=== PATIENT | male | born 1965 | race Caucasian/White ===

== ENCOUNTER 2016-10-24 20:38 | Emergency (ER) | payer BC ==
[2016-10-25] MEDS ORDERED: NS 0.9% 1000 ML* 1,000 ML IV SCH (00:15)
[2016-10-25 00:30] LABS: Albumin 4.4 g/dL (3.2-5.2); BUN/Creatinine Ratio 13.7 (8-20); Calcium 9.2 mg/dL (8.6-10.3); EGFR African American 107.9 (>60); EGFR Non-African American 83.9 (>60); Globulin 2.3 g/dL (2-4); Potassium 3.9 mmol/L (3.5-5.0); Total Bilirubin 0.6 mg/dL (0.2-1.0); Total Protein 6.7 g/dL (6.4-8.9)
[2016-10-25 00:40] LABS: Hematocrit 39 % (42-52); Hemoglobin 13.6 g/dl (14.0-18.0); Mean Corpuscular HGB Conc 35 g/dl (31-36); Mean Corpuscular Hemoglobin 30 pg (27-31); Mean Corpuscular Volume 87 fL (80-94); Mean Platelet Volume 8 um3 (7.4-10.4); Red Blood Count 4.53 10^6/ul (4.0-5.4); Red Cell Distribution Width 14 % (10.5-15); White Blood Count 7.1 10^3/ul (3.5-10.8)
[2016-10-25 01:02] LABS: Urine Bilirubin Negative (Negative); Urine Glucose Negative (Negative); Urine Nitrite Negative (Negative)
[2016-10-25] MEDS ORDERED: Iohexol 300* (CONTRAST) 10 ML SDV IV ONE (03:30)
[2016-10-25] MEDS ORDERED: Ibuprofen TAB* 600 MG PO ONE (04:48)
[2016-10-25 05:29] VITALS: BP 107/83
--- NOTE | 2016-10-25 09:27 | RAD ---
Indication: Right lower quadrant pain. Contrast: Administered 97.0 ml of OMNIPAQUE 300 mgi/ml CT of the abdomen and pelvis was performed after oral and IV contrast administration. No prior study is available for comparison. Lung bases demonstrate no pleural fluid, nodules or masses. Heart is of normal size without evidence of pericardial effusion. Liver is normal in size. Hypervascular lesion is noted in the dome of the left lobe of liver measuring 14 mm. This likely represents a flash filling hemangioma. No other focal lesions or intrahepatic duct dilatation is noted. The gallbladder demonstrates no calcified gallstones. No pericholecystic fluid or wall thickening is noted. The common duct is not dilated. The pancreas indicates no mass or pancreatic duct dilatation. The spleen is normal in size. No adrenal masses are noted. The kidneys demonstrate symmetric nephrograms without focal lesions. There is a left renal cyst measuring up to 2.7 cm. No retroperitoneal lymphadenopathy is noted. Atherosclerotic aorta is noted. CT of the pelvis demonstrates the colon to be filled with contrast. Appendix is visualized and is normal and contrast-filled. Urinary bladder is distended. No hernias are noted. Posterior to the duodenum just anterior to the inferior vena cava there is a low density structure measuring approximately 2.5 cm. The possibility of mesenteric cyst should BE considered. A lymph node is not totally excluded. Follow-up exam is suggested. IMPRESSION: Normal appendix. Likely flash filling hemangioma in the dome of the left lobe of liver. No bowel obstruction is noted. Low density structure located between the horizontal portion of the duodenum in the inferior vena cava measures 2.5 cm. Mesenteric cyst should BE considered. Follow-up exam is suggested.
--- NOTE | 2016-10-27 00:49 | ED ---
Sj Dominguez Aidan, scribed for Arnulfo Sousa on 10/25/16 at 0039 . Abdominal Pain/Male - HPI Summary HPI Summary: 51 y/o male presents to the ED with a complaint of acute, moderate (6/10) episodes of periumbilical abdominal pain that began at 1500 today. He denies any nausea, vomiting, diarrhea, constipation, CP, or SOB. Hx of groin pain and prostate problems. He still has his gallbladder and appendix. - History of Current Complaint Chief Complaint: EDAbdPain Stated Complaint: ABD PAIN Time Seen by Provider: 10/24/16 23:23 Hx Obtained From: Patient Onset/Duration: Sudden Onset, Lasting Hours, Still Present Timing: Intermittent, Lasting Days Severity Initially: Moderate Severity Currently: Moderate Pain Intensity: 6 Pain Scale Used: 0-10 Numeric Location: Umbilical Radiates: No Radiates to: Other - pain does not radiate, however, the patient has a Hx of unassociated groin pain Character: Sharp Aggravating Factor(s): Other: - unknown Alleviating Factor(s): Other: - unknown Associated Signs And Symptoms: Positive: Negative - Risk Factors Cardiac Risk Factors: Smoking - Allergies/Home Medications Allergies/Adverse Reactions: Allergies Allergy/AdvReac Type Severity Reaction Status Date / Time No Known Allergies Allergy Verified 06/25/14 19:18 PMH/Surg Hx/FS Hx/Imm Hx Infectious Disease History: No Infectious Disease History: Denies: Traveled Outside the [place] in Last 30 Days - Family History Known Family History: Positive: Hypertension - Social History Occupation: Employed Full-time Lives: Alone Alcohol Use: None Substance Use Type: Reports: Marijuana Smoking Status (MU): Light Every Day Tobacco Smoker Review of Systems Constitutional: Negative Eyes: Negative ENT: Negative Cardiovascular: Negative Respiratory: Negative Positive: Abdominal Pain. Negative: Vomiting, Diarrhea, Nausea Genitourinary: Negative Musculoskeletal: Negative Skin: Negative Neurological: Negative Psychological: Normal All Other Systems Reviewed And Are Negative: Yes Physical Exam Triage Information Reviewed: Yes Vital Signs On Initial Exam: Initial Vitals Pulse Resp BP Pulse Ox 61 18 137/86 99 10/24/16 20:40 10/24/16 20:40 10/24/16 20:40 10/24/16 20:40 Vital Signs Reviewed: Yes Appearance: Positive: Well-Appearing, No Pain Distress Skin: Positive: Warm, Skin Color Reflects Adequate Perfusion, Dry Head/Face: Positive: Normal Head/Face Inspection Eyes: Positive: EOMI, DELMI ENT: Positive: Normal ENT inspection Neck: Positive: Supple, Nontender Respiratory/Lung Sounds: Positive: Clear to Auscultation, Breath Sounds Present Cardiovascular: Positive: Normal, RRR, Pulses are Symmetrical in both Upper and Lower Extremities Abdomen Description: Positive: Soft, Other: - tenderness around umbilical area Bowel Sounds: Positive: Present Musculoskeletal: Positive: Normal, Strength/ROM Intact Neurological: Positive: Normal, Sensory/Motor Intact, Alert, Oriented to Person Place, Time Psychiatric: Positive: Normal, Affect/Mood Appropriate AVPU Assessment: Alert - Neli Coma Scale Coma Scale Total: 15 Diagnostics - Vital Signs Vital Signs Temp Pulse Resp BP Pulse Ox 10/24/16 23:39 98 F 55 16 134/80 97 10/24/16 22:00 60 18 134/80 99 10/24/16 20:40 61 18 137/86 99 - Laboratory Lab Results: Lab Results 10/24/16 10/24/16 Range/Units 23:35 23:35 INR (Anticoag Therapy) 0.99 (0.89-1.11) APTT 30.6 (26.0-36.3) seconds Sodium 137 (133-145) mmol/L Potassium 3.9 (3.5-5.0) mmol/L Chloride 103 (101-111) mmol/L Carbon Dioxide 25 (22-32) mmol/L Anion Gap 9 (2-11) mmol/L BUN 13 (6-24) mg/dL Creatinine 0.95 (0.67-1.17) mg/dL Est GFR ( Amer) 107.9 (>60) Est GFR (Non-Af Amer) 83.9 (>60) BUN/Creatinine Ratio 13.7 (8-20) Glucose 91 (70-100) mg/dL Calcium 9.2 (8.6-10.3) mg/dL Total Bilirubin 0.60 (0.2-1.0) mg/dL AST 19 (13-39) U/L ALT 14 (7-52) U/L Alkaline Phosphatase 57 (34-104) U/L Troponin I 0.00 (<0.04) ng/mL Total Protein 6.7 (6.4-8.9) g/dL Albumin 4.4 (3.2-5.2) g/dL Globulin 2.3 (2-4) g/dL Albumin/Globulin Ratio 1.9 (1-3) Lipase 15 (11.0-82.0) U/L Result Diagrams: 10/24/16 23:35 10/24/16 23:35 Lab Statement: Any lab studies that have been ordered have been reviewed, and results considered in the medical decision making process. - CT ABDOMEN/PELVIS CT CT Interpretation: No Acute Changes - NO BOWEL OBSTRUCTION, COLITIS, DIVERTICULITIS, FREE FLUID OR FREE AIR, NORMAL APPENDIX. UNREMARKABLE PANCREAS, KIDNEY AND GALLBLADDER. NO UMBILICAL HERNIA. SMALL LEFT INGUINAL REGION HERNIA CONTAINING FAT., Positive (See Comments) - SMALL LEFT RENAL CYST, ENLARGED CENTRAL PROSTATE GLAND PROTRUDING TOWARD BLADDER BASE CT Interpretation Completed By: Radiologist - HELIC[employer]CH[employer]IC Abdominal Pain Fem Course/Dx - Course Course Of Treatment: This is a 51 y/o male presenting with umbillical tenderness. Labs and imaging reviewed. The patient will be discharged with a diagnosis of abdominal pain. Recommended follow up with PCP within 3 days. - Diagnoses Provider Diagnoses: Abdominal pain Discharge - Discharge Plan Condition: Stable Disposition: HOME Discharge Disposition Comment: Please follow up with your primary care provider within 3 days. Prescriptions: Ibuprofen TAB* [Motrin TAB* 600 MG] 600 mg PO Q8H PRN #20 tab PRN Reason: Pain Patient Education Materials: Acute Abdominal Pain (ED) Referrals: Non Staff,Doctor [Primary Care Provider] - The documentation as recorded by the Sj vicente Aidan accurately reflects the service I personally performed and the decisions made by , Arnulfo Sousa.
== END 2016-10-25 05:28 | disposition home or self-care (01) ==
LOC: ED 20:38
DX: R10.84 Generalized abdominal pain (principal); F17.210 Nicotine dependence, cigarettes, uncomplicated
CPT/HCPCS: 36415; 74177; 80053; 81003; 83690; 84484; 85025; 85610; 85730; 96360; 99283; Q9967

== ENCOUNTER 2016-12-04 14:41 | Emergency (ER) | payer BC ==
[2016-12-04 16:03] VITALS: BP 147/82
--- NOTE | 2016-12-04 17:04 | UC ---
Debbie Dominguez Edward, scribed for Giacomo Reyes MD on 12/04/16 at 1537 . Skin Complaint HPI - HPI Summary HPI Summary: 51 y/o male presents to [facility] with a red rash on the R hip starting 8-9 days ago. The rash was sore and painful. Patient saw a dark spot in the rash a couple of days ago. Denies feeling sick. NKDA. No PMHx HTN and DM. - History of Current Complaint Time Seen by Provider: 12/04/16 15:29 Stated Complaint: RED AREA ON SIDE Hx Obtained From: Patient Onset/Duration: Sudden Onset, Lasting Days Location: Discrete - R Hip Character: Redness, Painful Associated Signs & Symptoms: Positive: Negative - Denied feeling sick, Rash - Allergy/Home Medications Allergies/Adverse Reactions: Allergies Allergy/AdvReac Type Severity Reaction Status Date / Time No Known Allergies Allergy Verified 12/04/16 15:56 Review of Systems Constitutional: Negative Skin: Rash Eyes: Negative ENT: Negative Respiratory: Negative Cardiovascular: Negative Gastrointestinal: Negative Genitourinary: Negative Motor: Negative Neurovascular: Negative Musculoskeletal: Negative Neurological: Negative Psychological: Negative All Other Systems Reviewed And Are Negative: Yes PMH/Surg Hx/FS Hx/Imm Hx - Additional Past Medical History Additional PMH: No HTN, no DM, no psychiatric disorders. Previously Healthy: Yes - Surgical History Surgical History: None - Family History Known Family History: Positive: Hypertension - Social History Alcohol Use: None Substance Use Type: Marijuana Smoking Status (MU): Light Every Day Tobacco Smoker Physical Exam Triage Information Reviewed: Yes Appearance: Well-Appearing, No Pain Distress Vital Signs: Initial Vital Signs Temp 99.7 F 12/04/16 15:53 Pulse 55 12/04/16 15:53 Resp 16 12/04/16 15:53 BP 147/82 12/04/16 15:53 Pulse Ox 97 12/04/16 15:53 Vital Signs Reviewed: Yes Eye Exam: Normal ENT: Positive: Normal ENT inspection Neck: Positive: Supple, Nontender Respiratory: Positive: Chest non-tender, Lungs clear, Normal breath sounds Cardiovascular: Positive: RRR Abdomen Description: Positive: Nontender, Soft Bowel Sounds: Positive: Present Musculoskeletal Exam: Normal Musculoskeletal: Positive: Strength Intact, ROM Intact Neurological Exam: Normal Neurological: Positive: Alert Psychological Exam: Normal Psychological: Positive: Age Appropriate Behavior Skin: Positive: rashes - 12 cm erythematous, blanching area @ R upper leg/lower ABD inguinal area Course/Dx - Course Course Of Treatment: MEDICATIONS REVIEWED UPON VISIT. RX DOXY 100MG X 21 DAYS. - Diagnoses Provider Diagnoses: LYME DISEASE Discharge - Discharge Plan Condition: Stable Disposition: HOME Prescriptions: DOXYcycline CAP(*) [DOXYcycline 100MG CAP(*)] 100 mg PO BID #42 cap Patient Education Materials: Lyme Disease (ED) Referrals: Non Staff,Doctor [Medical Doctor] - Additional Instructions: FOLLOW UP WITH YOUR DOCTOR. GET RECHECKED FOR ANY WORSENING OF YOUR CONDITION OR QUESTIONS OR CONCERNS. The documentation as recorded by the Debbie vicente Edward accurately reflects the service I personally performed and the decisions made by me, Giacomo Reyes MD.
== END 2016-12-04 16:00 | disposition home or self-care (01) ==
LOC: UCEAST 14:41
DX: A69.20 Lyme disease, unspecified (principal); Z72.0 Tobacco use
CPT/HCPCS: 99212; G0463

== ENCOUNTER → 2019-03-07 14:21 | Day surgery (SDC) | payer BC ==
[~2019-03-07 14:21] MED LIST: Acetaminophen IV 1GM/100ML * 1,000 MG/100 ML VIAL IVPB ONE; Acetaminophen IV 1GM/100ML * 100 ML ONE; Buffered Lidocaine 1% SYRIN* 1 ML/SYRINGE INTRADERM ONE; Bupivacaine 0.5%* 50 ML MDV VIAL ONE; Dexamethasone IV* 4 MG/ML 1 ML (4 MG) ONE; DiMENhydriNATE IV* 50 MG/ML VIAL IV PUSH PRN; Famotidine IV* 10 MG/ML 2 ML (20 mg) IV ONE; Famotidine IV* 10 MG/ML 2 ML (20 mg) ONE; Glycopyrrolate IV* 0.2 MG/ML 1 ML VIAL ONE; Ketorolac INJ* 30 MG/ML 1 ML VIAL ONE; Lactated Ringers 1000 ML Bag* 1,000 ML IV SCH; Lidocaine 2% JELLY* 6 ML JELLY TOPICAL ONE; Lidocaine 2% PF * 5 ML VIAL ONE; Midazolam* 1 MG/ML 5 ML VIAL (5 MG) ONE; Naloxone* 0.4 MG/ML 1 ML VIAL IV PRN; Ondansetron INJ* 2 MG/ML VIAL ONE; Propofol* 10 MG/ML 20 ML BTL ONE; Rocuronium* 10 MG/ML VIAL ONE; Succinylcholine* 20 MG/ML 10 ML VIAL ONE; ceFAZolin 2 GM PREMIX in ORs 2 GM/50 ML BAG ONE; fentaNYL* 50 MCG/ML 2 ML VIAL (100 MCG VIAL) ONE; fentaNYL* 50 MCG/ML 5 ML VIAL (250 MCG VIAL) ONE; oxyCODONE TAB* 5 MG TAB ONE
[2019-03-07] MEDS: fentaNYL* 50 MCG/ML 2 ML VIAL (100 MCG VIAL) IV PRN ×5 (18:20→18:40)
[2019-03-07] MEDS: oxyCODONE TAB* 5 MG TAB PO PRN ×2 (18:43→18:56)
[2019-03-07 18:47] VITALS: BP 102/70
--- NOTE | 2019-03-07 22:31 | OP ---
DATE OF OPERATION: 03/07/19 - [facility] DATE OF : 67. SURGEON: Gage Hubbard MD. FIELD HOCKEY COACH: KELLI Cuadra. PRE-OP DIAGNOSIS: Bilateral inguinal hernia. POST-OP DIAGNOSIS: Bilateral inguinal hernia. OPERATIVE PROCEDURE: Repair of bilateral inguinal hernia with mesh, robotic. INDICATION: Bilateral inguinal hernias risks including but not limited to bleeding, infection, injury to intraabdominal contents including the bowel, pelvic nerves and vessels, recurrence of the hernia, all explained to the patient. He seemed to understand and agreed to the procedure, and all questions were answered. DESCRIPTION OF PROCEDURE: The patient was taken to the operating room, placed supine. Preoperative antibiotics had been given. After the successful induction of general endotracheal anesthesia, the abdomen was prepped and draped in a sterile fashion. Time-out was performed indicating correct patient , correct procedure. The trocars were placed under direct visualization of the camera using bladeless trocars, the initial being an Optiview trocar, which was later replaced with an 8 mm trocar in the left upper quadrant. The patient was placed in a slight Trendelenburg position, the robot was brought and then docked. The peritoneum was taken down bilaterally exposing each hemipelvis. The direct hernia sacs were gently dissected out of the defect. On both sides, side specific ProGrip mesh was then placed over the hemipelvis covering the direct, indirect and femoral spaces. Cord structures were then identified and avoided during both dissections. The peritoneum was closed using running 3-0 V- Loc suture. EBL was minimal. Hemostasis was intact. The abdomen was scanned. There was no obvious injury. The trocars were removed after pneumoperitoneum was released from the abdomen. The skin was closed with Monocryl and glue. He tolerated the procedure well. He was extubated and taken to Recovery in stable condition. [id number]/[facility] #: [id number] [facility]
== END | disposition home or self-care (01) ==
LOC: OR 14:21
PROVIDERS: ATTEND Surgery
DX: K40.20 Bilateral inguinal hernia, without obstruction or gangrene, not specified as recurrent (principal); Z87.891 Personal history of nicotine dependence
CPT/HCPCS: 49650; S2900; A9270-GY; C1781; J0330; J0690; J1100; J1885; J2250; J2405; J2704; J3010; J3490